=== PATIENT | male | born 1985 | race Caucasian/White ===

== ENCOUNTER 2020-12-10 13:40 | Emergency (ER) | payer SELFPAY ==
[~2020-12-10] VITALS: Ht 182.9 cm; Wt 114.0 kg
[2020-12-10 13:42] VITALS: BP 163/105
--- NOTE | 2020-12-10 14:10 | PHYS DOC ---
Past History Additional Past Medical Histor: will not answer Past Surgical History: No Surgical History Alcohol Use: Rarely Social History Narrative: [facility] General Adult EDM: Chief Complaint: PSYCH EVALUATION HPI: HPI: Patient is a 52-year-old male brought in by EMS for altered mental status. Patient lives in an assisted living facility for [facility] and was found to be altered. On EMS arrival patient had locked himself in the back and was having a can of spray paint. Patient was mildly combative at the time. On arrival is cooperative and walking, only complaint that he is "having a bad day" because somebody called the construction driver on him. Patient is alert and oriented upon my evaluation. Patient states he has history of depression but denies any suicidal or homicidal ideations, also denies any hallucinations. Patient states that he huffs paint every now and then does not do every day. Patient is declining any work-up or evaluation just requesting a cab to be called because he does not have his phone Review of Systems: Review of Systems: All other systems within normal limits except for as noted in the HPI Allergies: Allergies: Allergies Coded Allergies Type Severity Reaction Last Updated Verified Penicillins Allergy Unknown 12/10/20 Yes Uncoded Allergies Type Severity Reaction Last Updated Verified CLINDAMYOCIN Allergy Unknown 12/10/20 Physical Exam: PE: Constitutional: Well developed, well nourished, no acute distress, non-toxic appearance. [] HENT: Normocephalic, atraumatic, bilateral external ears normal, nose normal. [] Eyes: PERRLA, conjunctiva normal, no discharge. [] Neck: No rigidity, supple, no stridor. [] Cardiovascular: Regular rate and rhythm, brisk cap refill [] Lungs & Thorax: Non labored symmetric respirations, no tachypnea or respiratory distress [] Abdomen: Soft, nondistended. Skin: Warm, dry, no erythema, no rash. [] Back: Unremarkable Extremities: No deformities, range of motion grossly intact, no lower extremity edema [] Neurologic: Alert and oriented X 3, no focal deficits noted. [] Psychologic: Affect normal, judgement normal, mood normal. [] Current Patient Data: Vital Signs: Vital Signs Date Time Temp Pulse Resp B/P (MAP) Pulse Ox O2 Delivery O2 Flow Rate FiO2 12/10/20 13:42 97.2 87 14 163/105 98 Room Air EKG: EKG: [] Radiology/Procedures: Radiology/Procedures: [] Heart Score: C/O Chest Pain: No Risk Factors: Risk Factors: DM, Current or recent (<one month) smoker, HTN, HLP, family history of CAD, obesity. Risk Scores: Score 0 - 3: 2.5% MACE over next 6 weeks - Discharge Home Score 4 - 6: 20.3% MACE over next 6 weeks - Admit for Clinical Observation Score 7 - 10: 72.7% MACE over next 6 weeks - Early Invasive Strategies Course & Med Decision Making: Course & Med Decision Making Pertinent Labs and Imaging studies reviewed. (See chart for details) [] Dragon Disclaimer: Dragon Disclaimer: This electronic medical record was generated, in whole or in part, using a voice recognition dictation system. Departure Departure: Impression: Primary Impression: Huffing Disposition: HOME / SELF CARE / HOMELESS Condition: STABLE Patient Instructions: Substance Abuse-Brief BRENDA WALSH MD Dec 10, 2020 14:10
== END 2020-12-10 14:19 | disposition home or self-care (01) ==
LOC: ER 13:40
DX: F18.90 Inhalant use, unspecified, uncomplicated (principal); R41.82 Altered mental status, unspecified; F32.9 Major depressive disorder, single episode, unspecified; Z88.0 Allergy status to penicillin
CPT/HCPCS: 99283